=== PATIENT | female | born 1985 | race Caucasian/White ===

== ENCOUNTER 2020-12-16 01:07 | Emergency (ER) | payer BC ==
[~2020-12-16] VITALS: Ht 165.1 cm; Wt 70.3 kg
[2020-12-16 01:22] VITALS: Ht 165.1 cm; Wt 70.3 kg
[2020-12-16 02:08] LABS: BASOPHIL % 0.4 % (0.2-1.3); PLATELET COUNT 290 x10^3mcL (179-408); RED CELL DISTRIBUTION WIDTH 13.2 % (12.3-17.7)
[2020-12-16 02:42] LABS: UA SPECIFIC GRAVITY >=1.030 (1.005-1.035); microscopic required? YES; urine erythrocyte 3+ (NEGATIVE)
[2020-12-16 04:52] VITALS: BP 122/70
== END 2020-12-16 04:52 | disposition home or self-care (01) ==
LOC: ED 01:07
PROVIDERS: Emergency Medicine
DX: O20.0 Threatened abortion (principal); O44.01 Complete placenta previa NOS or without hemorrhage, first trimester; Z3A.01 Less than 8 weeks gestation of pregnancy
CPT/HCPCS: 87491; 87591